=== PATIENT | female | born 1960 | race Caucasian/White ===

== ENCOUNTER → 2019-06-20 | Outpatient (CLI) | payer OTHER | LOC: CAT 13:42 | DX: Z13.6 Encounter for screening for cardiovascular disorders (principal); E78.00 Pure hypercholesterolemia, unspecified; I25.10 Atherosclerotic heart disease of native coronary artery without angina pectoris ==

== ENCOUNTER → 2019-08-01 | Day surgery (SDC) | payer OTHER ==
[~2019-08-01] VITALS: Ht 165.1 cm; Wt 72.6 kg
[~2019-08-01] MED LIST: ALEVE220 M1 PO; BIRTH CONTROL PILL PO; CYMBALTA60 MG PO; FISH OIL 1,0001 EAC9 PO; GINGER250 MG PO; PROTONIX 20 MG20 MG PO; ZANAFLEX4 M2 PO; ZESTRIL20 MG PO
[2019-08-01 09:40] VITALS: BP 151/69
[2019-08-01 14:40] VITALS: BP 151/69
--- NOTE | 2019-08-02 09:09 | EKG ---
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
--- NOTE | 2019-08-05 01:07 | O ---
[address] [address] OPERATIVE REPORT Name: RUCHI KAM Room #: REG [facility].#: [id number] Admission: 08/01/19 Attend Phys: Carlos Duncan MD Discharge: Date of : 62 Report #: [id number] THIS REPORT FOR: //name// CC: Woo Duncan DATE OF SERVICE: 08/01/2019 SERVICE: Orthopedics. FACILITY: [facility]. SURGEON: Carlos Duncan MD BEST WORKER: Cee Rodríguez NP INDICATION FOR BEST WORKER: Extremity positioning, suture and arthroscope management and assistance with repair. PREOPERATIVE DIAGNOSES: 1. Left hip pain. 2. Left hip labral tear. 3. Left hip acetabular dysplasia. 4. Left hip cam impingement. POSTOPERATIVE DIAGNOSES: 1. Left hip pain. 2. Left hip labral tear. 3. Left hip acetabular dysplasia. 4. Left hip cam impingement. PROCEDURES: 1. Left hip arthroscopic labral repair. 2. Left hip arthroscopic cam osteochondroplasty. 3. Left hip arthroscopic chondroplasty. COMPLICATIONS: None. DRAINS: None. SPECIMENS: None. ANESTHESIA: General with regional. FINDINGS: 1. Severe chondrolabral injury to the left hip secondary to a combination of [facility] [address] [place] [address] OPERATIVE REPORT Name: RUCHI KAM [id number] Admission: 08/01/19 Attend Phys: Carlos Duncan MD Discharge: Date of : 62 Report #: [id number] acetabular dysplasia and cam impingement. 2. Detached anterior labrum with anterior chondral wave sign involving approximately 30-40% of the front to back articular surface repaired with Kristina CinchLock anchor x 3 with 4 sutures. 3. Small cam deformity treated with cam osteoplasty. 4. Capsular repair completed. 5. 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 HISTORY: The patient is a 58-year-old female with a history of left hip pain that have been recalcitrant to all types of conservative measures including rest, activity modification, physical therapy, oral medications and injection treatment. She had imaging which was consistent with acetabular dysplasia and she had a significant labral tear. She did seem to have soft tissue type symptoms in her hip, but she did not have any evidence of arthritis. Preoperative imaging demonstrated a [place] grade of 1 and alpha angle of approximately 57 degrees with a distal cam deformity and acetabular dysplasia with the labral tear and paralabral cyst. Risks, benefits, alternatives and indication of surgery discussed with her in detail. Risks include but not limited to pain, bleeding, infection, injury to nerves or blood vessels, persistent pain despite surgical intervention especially in the context of acetabular dysplasia, progression of any preexisting chondral injury, failure of any repairs as well as complications related to anesthesia such as stroke, heart attack, pulmonary complications, thromboembolic disease and . Despite these risks, she wished to proceed. PROCEDURE IN DETAIL: After the left lower extremity was correctly identified in preoperative holding area as the operative extremity, the patient underwent placement of a single shot regional nerve block by anesthesia. She was then taken to the operating room where general anesthesia was induced without complication. She was padded appropriately. Prophylactic antibiotics were administered at appropriate time. Left hip was evaluated after she was transferred to the operating table under fluoroscopy to identify the extent of the cam deformity. The presence of this deformity was confirmed. Left hip was prepped and draped in standard sterile fashion. Time-out procedure was performed. Standard anterolateral viewing portal was established followed by anterior medial working portal under fluoroscopic and arthroscopic guidance after traction was applied to the left leg. We immediately identified significant chondral wave sign as well as a full thickness labral tear more medially and a detached anterior labrum essentially confluent with the chondral wave sign. There was some degenerative fraying of the articular cartilage and there were chondral loose bodies floating through the joint which measured approximately 3-5 mm in size but were very thin in thickness. These were lavaged round of the hip and a chondroplasty was completed with the shaver. There was significant erythema within the joint capsule and there was a small effusion with some [address] [address] OPERATIVE REPORT Name: RUCHI KAM Room #: REG [facility] M.R.#: [id number] Admission: 08/01/19 Attend Phys: Carlos Duncan MD Discharge: Date of : 62 Report #: [id number] thickened synovial fluid. This was lavaged as well. The erythema and capsulitis will be an indication for postoperative CPM usages to minimize the risk of adhesions, which are a known cause for reoperation in this patient population. After transverse capsulotomy was completed, a limited debridement was performed intra-articularly to preserve as much capsular tissue as possible. The capsule was reflected off the dorsal side of the labrum to allow access to the acetabulum. There was no extra-articular subspine lesion, so no resection was performed here. The acetabular rim itself was deficient and this is a dysplasia situation, so no rim resection was performed. I did abrade the acetabular rim gently with elevator to generate a bleeding surface and then the first anchor was placed more anteriorly with [place] CinchLock cerclage sutures. A second anchor was placed more lateral to this at the corner of the acetabulum and I was concerned about the size of the chondral detachment in the area of the most prominent portion of the chondral wave sign. From a standpoint of the radial dimension, a simple stitch was not sufficient to stabilize the chondral wave and the labral tear as this would have caused buckling of the tissue. Furthermore, a simple stitch through the articular cartilage would not have provided adequate repair of the labrum. Because of the acetabular dysplasia, she had a significant limited bone stock. For that reason, I elected to double load the Kristina CinchLock suture anchor with #1 suture as a mattress through the articular cartilage to stabilize that portion of the pathology and then utilized the second stitch to repair the labrum to the acetabular rim and then this was tightened and secured. In the process of this, did have one suture anchor pull out because of the limited acetabular bone stock and so this anchor was discarded without any consequence as sutures have been secured and a new anchor was placed at a steeper angle which successfully achieved excellent bony purchase. A third anchor was then placed laterally after the scope was placed in the modified anteromedial portal. A distal anterolateral accessory portal was utilized to assist in the reduction of the suture and the tissue by placing a probe in a percutaneous fashion and then DALA portal was used during the cam portion of the procedure. After the acetabular labral repair was completed, a chondroplasty was then completed once more with the shaver stabilizing the cartilage to smooth parameters. The soft tissue was probed and found to be significantly more stable at this point to probing compared to ____ of arthroscopy. The traction was let down, the hip was flexed up and then transverse capsulotomy was slightly extended down the neck in a T-shape to allow access to the small distal cam deformity which was resected with the bur. I removed the instruments, brought C-arm in and identified additional bone distally that needed resection and then placed the instruments back in the hip, completed the cam osteoplasty and lavaged the bony debris out of the hip. I then removed the instruments, brought C-arm in again and took final x-rays confirming adequate bony resection being completed on the cam osteoplasty. Instruments were then [facility] [address] [place] [address] OPERATIVE REPORT Name: KAMRUCHI Room #: REG [facility] M.R.#: [id number] Admission: 08/01/19 Attend Phys: Carlos Duncan MD Discharge: Date of : 62 Report #: [id number] placed back into the hip. Final lavage was completed and the T-shaped capsulotomy was closed with a total of four #2 Vicryl sutures. Instruments were removed. Portal sites were closed. Sterile dressing was applied. <ELECTRONICALLY SIGNED> By: Carlos Duncan MD 08/05/19 0107 [id number] Carlos Duncan MD /nt
== END | disposition home or self-care (01) ==
LOC: OR 08:27
DX: M25.552 Pain in left hip (principal); S73.192A Other sprain of left hip, initial encounter; Q65.89 Other specified congenital deformities of hip; M25.852 Other specified joint disorders, left hip; I10 Essential (primary) hypertension; G43.909 Migraine, unspecified, not intractable, without status migrainosus; K21.9 Gastro-esophageal reflux disease without esophagitis; F32.9 Major depressive disorder, single episode, unspecified; Z98.890 Other specified postprocedural states; Z79.899 Other long term (current) drug therapy; Z91.041 Radiographic dye allergy status; Z87.442 Personal history of urinary calculi
CPT/HCPCS: 50010; 50101; 50386; 51320; 51538; 52001; 52282; 52304; 52313; 55430; 56524; 56527; 57092; 57103; 62110; 62900; 70005